=== PATIENT | male | born 1950 ===

== ENCOUNTER → 2018-08-18 21:11 | Outpatient (REF) | payer MEDICARE, OTHER, SELFPAY ==
[2018-08-18 22:06] LABS: Add Manual Diff / Slide Review NO; Basophils Percent Auto 0.8 % (0-2); Eosinophils Percent Auto 3.8 % (2-4); Hematocrit 42.2 % (41-53); Hemoglobin 14.1 g/dL (13.5-17.5); Mean Corpuscular HGB Conc 33.5 % (30-36); Mean Corpuscular Hemoglobin 30.2 PG (26-34); Mean Corpuscular Volume 90.1 fL (80-100); Monocytes Percent Auto 7.3 % (3-14); Neutrophils Absolute Auto 2500 /uL (3000-5900); Neutrophils Percent Auto 56.1 % (50-75); Platelet Count 252 X10^3/uL (150-400); Red Blood Cell Count 4.68 X10^6/uL (4.5-5.9); Red Cell Distribution Width 14.2 % (11.6-14.8); White Blood Cell Count 4.4 X10^3/uL (4.5-11.0)
[2018-08-20 14:12] LABS: PSA Total 0.44 ng/mL (< 4.01)
[2018-08-20 14:52] LABS: Estradiol 22 pg/mL (< 40)
[2018-08-20 15:57] LABS: Dehydroepiandrosterone Sulfate 59 mcg/dL (24-244)
[2018-08-22 19:09] LABS: Albumin 4.5 g/dL (3.6-5.1); Sex Hormone Binding Globulin 12 nmol/L (22-77); Testosterone, Total 216 ng/dL (250-1100)
== END ==
LOC: LAB 21:11
PROVIDERS: Visit Provider Family Medicine
DX: E29.1 Testicular hypofunction (principal); Z79.899 Other long term (current) drug therapy
CPT/HCPCS: 82040; 82627; 82670; 84153; 84154; 84270; 84403; 85025

== ENCOUNTER → 2018-10-30 23:29 | Outpatient (REF) | payer MEDICARE, OTHER, SELFPAY ==
[2018-10-30 23:34] LABS: Bacteria Urine None Seen; RBC Urine None Seen (0-5/HPF); WBC Urine None Seen (0-5/HPF)
[2018-10-31 01:51] LABS: Appearance Urine UA CLEAR; Bilirubin Urine UA NEGATIVE (NEGATIVE); Color Urine UA YELLOW; Glucose Urine UA NEGATIVE (Negative); Ketones Urine UA NEGATIVE (NEGATIVE); Leukocyte Esterase Urine UA NEGATIVE (NEGATIVE); Nitrite Urine UA NEGATIVE (Negative); Occult Blood Urine UA NEGATIVE (Negative); Protein Urine UA NEGATIVE (Negative); Urobilinogen Urine UA 0.2 E.U./dL (0.2); pH Urine UA 5.5 (4.5-8.0)
[2018-10-31 02:39] LABS: Add Manual Diff / Slide Review NO; Basophils Absolute Auto 0 /uL (0-100); Eosinophils Absolute Auto 200 /uL (0-450); Eosinophils Percent Auto 3.5 % (2-4); Hematocrit 42.9 % (41-53); Hemoglobin 14.3 g/dL (13.5-17.5); Lymphocytes Absolute Auto 1400 /uL (1100-4500); Lymphocytes Percent Auto 28.5 % (25-40); Mean Corpuscular HGB Conc 33.4 % (30-36); Mean Corpuscular Hemoglobin 29.5 PG (26-34); Mean Corpuscular Volume 88.4 fL (80-100); Monocytes Absolute Auto 400 /uL (0-900); Monocytes Percent Auto 8.3 % (3-14); Neutrophils Absolute Auto 2800 /uL (1500-7000); Neutrophils Percent Auto 58.7 % (50-75); Platelet Count 264 X10^3/uL (150-400); Red Blood Cell Count 4.85 X10^6/uL (4.5-5.9); Red Cell Distribution Width 13.8 % (11.6-14.8); White Blood Cell Count 4.8 X10^3/uL (4.5-11.0)
[2018-10-31 02:48] LABS: Alanine Aminotransferase 78 IU/L (21-72); Albumin 4.4 g/dL (3.5-5.0); Albumin Globulin Ratio 1.6 (1.0-2.8); Alkaline Phosphatase 43 U/L (38-126); Aspartate Aminotransferase 50 IU/L (17-59); BUN Creatinine Ratio 13.8 (6-22); Bilirubin Total 0.5 mg/dL (0.2-1.3); Blood Urea Nitrogen 18 mg/dL (9-20); Calcium 9.4 mg/dL (8.4-10.2); Carbon Dioxide 28 mmol/L (22-32); Chloride 100 mmol/L (98-107); Cholesterol 185 mg/dL (140-199); Estimated Glomerular Filt Rate 55.1 mL/min (>60); Globulin 2.7 g/dL (1.7-4.1); Glucose 79 mg/dL (80-110); HDL Cholesterol 27 mg/dL (40-60); HEMOLYSIS < 15 (0-50); LDL Cholesterol Calculated 141 mg/dL (<100); Potassium 4.8 mmol/L (3.4-5.1); Sodium 139 mmol/L (137-145); Total Protein 7.1 g/dL (6.3-8.2); Triglycerides 87 mg/dL (35-150)
[2018-10-31 03:21] LABS: Ferritin 57.3 ng/mL (17.9-464)
[2018-10-31 04:43] LABS: Culture Indicated Urine Cult Not Indicated; Urine Comments Microscopic Normal
[2018-10-31 07:50] LABS: Free T4, Direct Thyroxine 1.55 ng/dL (0.78-2.19)
[2018-11-02 19:26] LABS: Estradiol 32 pg/mL (< 40)
[2018-11-04 15:21] LABS: PSA Total 0.41 ng/mL (< 4.01)
== END ==
LOC: LAB 23:29
PROVIDERS: Visit Provider Family Medicine
DX: I50.22 Chronic systolic (congestive) heart failure (principal); Z00.00 Encounter for general adult medical examination without abnormal findings; E29.1 Testicular hypofunction; I11.0 Hypertensive heart disease with heart failure
CPT/HCPCS: 36415; 80053; 80061; 81001; 82627; 82670; 82728; 84153; 84154; 84270; 84402; 84403; 84439; 84443; 85025